=== PATIENT | male | born 1960 | race Caucasian/White ===

== ENCOUNTER 2017-03-07 10:44 | Day surgery (SDC) | payer OTHER ==
[~2017-03-07] VITALS: Ht 165.1 cm; Wt 78.2 kg
[2017-03-07] MEDS ORDERED: METOPROLOL (12:34)
[2017-03-07 12:36] VITALS: Ht 165.1 cm; Wt 78.2 kg
[2017-03-07 12:49] VITALS: BP 134/85; PULSE 71; RESP 17
[2017-03-07] MEDS ORDERED: MIDAZOLAM 1 MG/ML 2 ML INJ ONE ×2 (14:13)
[2017-03-07] MEDS ORDERED: FENTAnyl 50 MCG/ML VIAL ONE (14:13)
--- NOTE | 2017-03-07 14:23 | GILP ---
DATE OF PROCEDURE: NAME OF PROCEDURES: Colonoscopy and biopsy. SURGEON: Shona Garcia MD PREOPERATIVE DIAGNOSIS: Screening colonoscopy. POSTOPERATIVE DIAGNOSES: 1. Colonoscopy all the way to the cecum. 2. Two small polyps were removed using the biopsy forceps. 3. Internal hemorrhoids. INDICATION FOR THE PROCEDURE: Mr. Catalina Huff is a 56-year-old male patient who was scheduled f or screening colonoscopy. The procedure and possible complications were well explained to the patient, he understood and conse nted to the procedure. DESCRIPTION OF PROCEDURE: Under the influence of fentanyl and Versed, the colonoscope was carefully introduced in the rectum, and under direct vision, it was advanced all the way to the cecum. FINDINGS: The patient had 2 small colon polyps and they were removed using the biopsy forceps. The patient was noted to have internal hemorrhoids. He tolerated the procedure very well and there was no complication from the procedure. At the end o f the procedure, he was awake with stable vital signs, and he was discharged home to the care of his family. IMPRESSION: 1. Colonoscopy all the way to the cecum. 2. Two small colon polyps were removed using the biopsy forceps. 3. Internal hemorrhoids. PLAN: Await histopathology report. Next screening colonoscopy in 5 years. Dictated By: SHONA HUANG/NICHOL Conf#: [id number] DID#: [id number]
[2017-03-07 14:25] VITALS: BP 124/76; PULSE 69; RESP 18
== END 2017-03-07 18:41 | disposition home or self-care (01) ==
LOC: GIL 10:44
PROVIDERS: ATTEND Internal Medicine Gastroenterology
DX: Z12.11 Encounter for screening for malignant neoplasm of colon (principal); K63.5 Polyp of colon; K64.8 Other hemorrhoids; I10 Essential (primary) hypertension
CPT/HCPCS: 45380; 88305; J2250; J3010; Z7610